=== PATIENT | female | born 1985 | race American Indian/Alaskan Native ===

== ENCOUNTER 2017-09-02 14:07 | Emergency (ER) | payer OTHER ==
[~2017-09-02] VITALS: Ht 160 cm; Wt 86.1 kg
[~2017-09-02 14:07] MED LIST: ALLEGRA ALLERG180 MG PO; CYCLOBENZAPRINE10 MG PO; DOXYCYCLINE HY100 MG PO; IBUPROFEN400 MG PO; IBUPROFEN600 MG PO; IBUPROFEN800 MG PO; LIDODERM700 MG TOP; NORCO 5-325 TA1 EACH PO; PRENATAL CAPLE1 EACH PO; ZOFRAN ODT8 MG SL
[2017-09-02] MEDS ORDERED: IBUPROFEN600 MG PO (16:47)
[2017-09-02] MEDS ORDERED: ZITHROMAX1 GM PO (16:47)
[2017-09-02] MEDS ORDERED: MEDROL4 MG PO (16:47)
[2017-09-02] MEDS ORDERED: VENTOLIN HFA18 GM INH (16:47)
== END 2017-09-02 17:03 | disposition home or self-care (01) ==
LOC: ED 14:07
DX: S29.012A Strain of muscle and tendon of back wall of thorax, initial encounter (principal); R09.1 Pleurisy; F17.200 Nicotine dependence, unspecified, uncomplicated; X58.XXXA Exposure to other specified factors, initial encounter
CPT/HCPCS: 71045; 80053; 81001; 84703; 85025; 96374; 99283; J1885

== ENCOUNTER 2019-05-16 18:58 | Emergency (ER) | payer OTHER ==
[~2019-05-16] VITALS: Ht 160 cm; Wt 90.7 kg
[~2019-05-16 18:58] MED LIST changes: +MEDROL4 MG PO; +VENTOLIN HFA18 GM INH; +ZITHROMAX1 GM PO
[2019-05-16] MEDS ORDERED: OXYCODONE HCL5 MG PO (19:21)
== END 2019-05-16 20:19 | disposition home or self-care (01) ==
LOC: ED 18:58
DX: O99.89 Other specified diseases and conditions complicating pregnancy, childbirth and the puerperium (principal); N89.8 Other specified noninflammatory disorders of vagina; Z91.018 Allergy to other foods
CPT/HCPCS: 81001; 99284

== ENCOUNTER 2021-08-12 18:53 | Emergency (ER) | payer OTHER ==
[~2021-08-12] VITALS: Ht 160 cm; Wt 85.1 kg
[~2021-08-12 18:53] MED LIST changes: +OXYCODONE HCL5 MG PO
[2021-08-12] MEDS ORDERED: ONDANSETRON ODT8 MG PO (20:52)
[2021-08-12] MEDS ORDERED: LOMOTIL TABLET1 EACH PO (20:52)
== END 2021-08-12 21:26 | disposition home or self-care (01) ==
LOC: ED 18:53
DX: K52.9 Noninfective gastroenteritis and colitis, unspecified (principal); Z91.018 Allergy to other foods; Z20.822 Contact with and (suspected) exposure to COVID-19
CPT/HCPCS: 36415; 80048; 81001; 83690; 84703; 85025; 96374; 96375; 99284-25; C9803; J1790; J1885; J7030; U0003

== ENCOUNTER 2021-09-09 06:40 | Emergency (ER) | payer OTHER ==
[~2021-09-09] VITALS: Ht 160 cm; Wt 84.8 kg
[~2021-09-09 06:40] MED LIST changes: +LOMOTIL TABLET1 EACH PO; +ONDANSETRON ODT8 MG PO
--- OUTSIDE RECORDS SUMMARY | 2021-09-09 06:48 | XMS ---
PreManage Notification: [employer] Security Manager Financial Services Events No recent Security Events currently on file CRITERIA MET - [facility] - 2 Visits in 30 Days CARE PROVIDERS There are no care providers on record at this time. Jori has no Care Guidelines for this patient. [place] V[facility] (12 [address] [facility] NOTE: Visits indicate total known visits. ED/C VISIT TRACKING (12 MO.) [facility]2021 06[facility] COMPLAINT: - FLANK PAIN 08/12/2021 18:53 [facility] [place] TYPE: Emergency COMPLAINT: - FLU SYMPTOMS DIAGNOSES: - Nausea with vomiting, unspecified - Noninfective gastroenteritis and colitis, unspecified - Allergy to other foods - Contact with and (suspected) exposure to COVID-19 INPATIENT VISIT TRACKING (12 MO.) No inpatient visits to display in this time frame [email or web address]
[2021-09-09] MEDS ORDERED: HYDROCODON-ACE1 EA10 PO (09:28)
[2021-09-09] MEDS ORDERED: ONDANSETRON ODT4 MG PO (09:28)
== END 2021-09-09 10:19 | disposition home or self-care (01) ==
LOC: ED 06:40
DX: N13.2 Hydronephrosis with renal and ureteral calculous obstruction (principal); Z91.018 Allergy to other foods
CPT/HCPCS: 36415; 74176; 80053; 81001; 83690; 84703; 85025; 96374; 96375; 99284-25; J1170; J1885; J2405; J7030

== ENCOUNTER 2021-11-17 13:35 | Emergency (ER) | payer OTHER ==
[~2021-11-17] VITALS: Ht 160 cm; Wt 84.8 kg
[~2021-11-17 13:35] MED LIST changes: +HYDROCODON-ACE1 EA10 PO; +ONDANSETRON ODT4 MG PO
[2021-11-17] MEDS ORDERED: LIDODERM1 EACH TOP (15:28)
[2021-11-17] MEDS ORDERED: CYCLOBENZAPRINE10 MG PO (15:28)
== END 2021-11-17 21:39 | disposition home or self-care (01) ==
LOC: ED 13:35
DX: S39.012A Strain of muscle, fascia and tendon of lower back, initial encounter (principal); X58.XXXA Exposure to other specified factors, initial encounter; Z91.018 Allergy to other foods
CPT/HCPCS: 72100; 84703; 96372; 99284-25; A9270; J1885; J2270

== ENCOUNTER 2021-12-25 18:08 | Emergency (ER) | payer OTHER ==
[~2021-12-25] VITALS: Ht 162.6 cm; Wt 84.8 kg
[~2021-12-25 18:08] MED LIST changes: +LIDODERM1 EACH TOP
== END 2021-12-25 22:35 | disposition home or self-care (01) ==
LOC: ED 18:08
DX: U07.1 COVID-19 (principal); Z91.018 Allergy to other foods; Z79.899 Other long term (current) drug therapy; Z87.442 Personal history of urinary calculi
CPT/HCPCS: 36415; 71045; 74176; 80053; 81001; 84703; 85025; 87502; J1885; J2405; J7030; J7121; U0003

== ENCOUNTER 2025-03-09 12:51 | Emergency (ER) | payer OTHER ==
[~2025-03-09] VITALS: Ht 162.6 cm; Wt 85.0 kg
[2025-03-09] MEDS ORDERED: CYCLOBENZAPRINE HCL 10 MG TAB PO ONE (14:15)
[2025-03-09] MEDS ORDERED: KETOROLAC TROMETHAMINE 15 MG/ML VIAL IM ONE (14:15)
[2025-03-09] MEDS ORDERED: LIDOCAINE HCL 4% 1 EACH PATCH TD ONE ×2 (14:15→15:41)
[2025-03-09] MEDS ORDERED: KETOROLAC TROMETHAMINE 15 MG/ML VIAL IV ONE (14:45)
[2025-03-09] MEDS ORDERED: HYDROmorphone HCL 1 MG/ML SYR IV ONE (15:45)
[2025-03-09] MEDS ORDERED: CYCLOBENZAPRINE10 MG PO (16:43)
[2025-03-09] MEDS ORDERED: IBU600 MG PO (16:43)
[2025-03-09] MEDS ORDERED: ASPERCREME1 EACH TD (16:43)
[2025-03-09 16:57] VITALS: BP 120/76
[2025-03-09] MEDS ORDERED: LIDOCAINE PATCH REMOVAL 1 EA TD SCH (21:00)
== END 2025-03-09 16:57 | disposition home or self-care (01) ==
LOC: ED 12:51
DX: M54.50 Low back pain, unspecified (principal); Z91.018 Allergy to other foods; Z79.899 Other long term (current) drug therapy; Z87.891 Personal history of nicotine dependence
CPT/HCPCS: 51798; 96374; 96375; 99283-25; A9270; J1171; J1885